=== PATIENT | male | born 1950 | race Caucasian/White ===

== ENCOUNTER 2016-06-30 07:26 | Day surgery (SDC) | payer MEDICARE ==
[2015-02-21 09:20] VITALS: BMI 27.8
[2016-06-30] MEDS ORDERED: Lactated Ringer's 500 ML IV ONE (08:06)
[2016-06-30] MEDS ORDERED: Propofol 10 mg/ml Inj (20 ML) ONE (09:26)
[2016-06-30 10:10] VITALS: TEMP 97
[2016-06-30 10:26] VITALS: BP 133/74; PULSE 81; RESP 15; O2SAT 100
== END 2016-06-30 10:32 | disposition home or self-care (01) ==
LOC: H.ENDO 07:26
PROVIDERS: ATTEND Internal Medicine Gastroenterology
DX: K21.9 Gastro-esophageal reflux disease without esophagitis (principal); E11.9 Type 2 diabetes mellitus without complications; E78.5 Hyperlipidemia, unspecified; I10 Essential (primary) hypertension; F32.9 Major depressive disorder, single episode, unspecified; G47.30 Sleep apnea, unspecified
CPT/HCPCS: 45378; 88305; J2001; J2704; J7120

== ENCOUNTER 2016-10-06 08:31 | Day surgery (SDC) | payer MEDICARE ==
[2015-02-21 09:20] VITALS: BMI 27.8
[2016-10-06] MEDS ORDERED: Lactated Ringer's 500 ML IV ONE (09:10)
[2016-10-06] MEDS ORDERED: Propofol 10 mg/ml Inj (20 ML) ONE (10:16)
[2016-10-06 10:45] VITALS: TEMP 97.1; O2SAT 98
[2016-10-06 10:58] VITALS: BP 140/72; PULSE 68; RESP 19
== END 2016-10-06 11:06 | disposition home or self-care (01) ==
LOC: H.ENDO 08:31
PROVIDERS: ATTEND Internal Medicine Gastroenterology
DX: R12 Heartburn (principal); K20.9 Esophagitis, unspecified; K29.70 Gastritis, unspecified, without bleeding; K44.9 Diaphragmatic hernia without obstruction or gangrene; K25.9 Gastric ulcer, unspecified as acute or chronic, without hemorrhage or perforation; K22.8 Other specified diseases of esophagus
CPT/HCPCS: 43239; 88305; J2001; J2704; J3010; J7120